=== PATIENT | male | born 1975 ===

== ENCOUNTER 2022-04-04 03:11 | Emergency (ER) | payer OTHER ==
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
[2022-04-04 05:02] VITALS: BP 139/87
== END 2022-04-04 05:02 | disposition home or self-care (01) ==
LOC: ED 03:11
DX: Z04.1 Encounter for examination and observation following transport accident (principal); V87.7XXA Person injured in collision between other specified motor vehicles (traffic), initial encounter; Y93.89 Activity, other specified; Y92.488 Other paved roadways as the place of occurrence of the external cause; Y99.8 Other external cause status
CPT/HCPCS: 99282